=== PATIENT | male | born 1970 | race Caucasian/White ===

== ENCOUNTER 2021-05-18 19:31 | Outpatient (REF) | payer MEDICARE, MEDICAID, SELFPAY ==
[2021-05-23 05:54] LABS: EDDP-by GC-MS 1084 ng/mL (Cutoff: 100); Methadone Interpretation Positive.; Methadone-by GC-MS 1302 ng/mL (Cutoff: 100)
== END 2021-05-18 19:32 | disposition home or self-care (01) ==
LOC: NCHCN 19:31
PROVIDERS: PCP Family Medicine; Visit Provider Family Medicine
DX: Z51.81 Encounter for therapeutic drug level monitoring (principal)
CPT/HCPCS: 80358

== ENCOUNTER 2025-01-19 10:47 | Outpatient (REF) | payer MEDICARE, MEDICAID, SELFPAY ==
[2025-01-19 16:12] LABS: Hemoglobin A1C 5.6 % (<5.7)
[2025-01-19 16:41] LABS: ALT 17 U/L (10-49); AST 21 U/L (<34); Albumin 4.3 g/dL (3.4-5.0); Alkaline Phosphatase 70 U/L (46-116); Anion Gap 9.4 mmol/L (3-11); BUN 14 mg/dL (9-23); Bilirubin, Total 0.30 mg/dL (0.2-1.2); CO2 27.6 mmol/L (20.0-31.0); Calcium 9.7 mg/dL (8.3-10.6); Chloride 108 mmol/L (98-107); Cholesterol 227 mg/dL (<200); Glucose 90 mg/dL (74-106); HDL Cholesterol 36 mg/dL (>40); Potassium 4.5 mmol/L (3.5-5.1); Sodium 145 mmol/L (136-145); Total Protein 7.3 g/dL (5.7-8.2)
[2025-01-20 13:59] LABS: PSA, Screening 0.6 ng/mL (<=3.5)
== END 2025-01-19 10:48 | disposition home or self-care (01) ==
LOC: NCHCN 10:47
PROVIDERS: PCP Family Medicine; Visit Provider Family Medicine
DX: Z13.220 Encounter for screening for lipoid disorders (principal); R35.1 Nocturia; Z13.1 Encounter for screening for diabetes mellitus
CPT/HCPCS: 80053; 80061; 84153; 83036